=== PATIENT | female | born 1995 | race Caucasian/White ===

== ENCOUNTER 2020-09-12 14:44 | Emergency (ER) | payer MEDICAID ==
[~2020-09-12] VITALS: Ht 170.2 cm; Wt 61.0 kg
[2020-09-12] MEDS ORDERED: ACETAMINOPHEN 325MG TABLET PO ONE (15:30)
[2020-09-12 15:51] LABS: CLARITY URINE CLEAR (CLEAR); COLOR URINE YELLOW (YELLOW); KETONES URINE NEGATIVE (NEGATIVE); LEUKOCYTE ESTERASE URINE 1+ (NEGATIVE); NITRITE URINE NEGATIVE (NEGATIVE); OCCULT BLOOD URINE NEGATIVE (NEGATIVE); PH URINE 7.5 (4.5-8.0); PROTEIN URINE NEGATIVE (NEGATIVE); SPECIFIC GRAVITY URINE 1.006 (1.005-1.030); UROBILINOGEN URINE 0.2 E.U./dL (0.2-1.0)
[2020-09-12 17:58] VITALS: BP 106/67
== END 2020-09-12 18:13 | disposition home or self-care (01) ==
LOC: ER 14:44
DX: O99.891 Other specified diseases and conditions complicating pregnancy (principal); Z03.818 Encounter for observation for suspected exposure to other biological agents ruled out; R06.02 Shortness of breath; J02.9 Acute pharyngitis, unspecified; O23.41 Unspecified infection of urinary tract in pregnancy, first trimester; O26.891 Other specified pregnancy related conditions, first trimester; Z3A.14 14 weeks gestation of pregnancy
CPT/HCPCS: 81003; 81025; 87070; 87430; 87635; 87804; 93005; 99284; C9803